=== PATIENT | female | born 1945 | race Caucasian/White ===

== ENCOUNTER 2016-12-18 09:20 | Emergency (ER) | payer BC, MEDICARE, OTHER ==
[~2016-12-18] VITALS: Ht 170.2 cm; Wt 90.5 kg
[2016-12-18 09:22] VITALS: BP 176/80; PULSE 20; PULSE 80; RESP 20; TEMP 97.7; O2SAT 97
[2016-12-18] MEDS ORDERED: CLON0.5T PO (09:53)
[2016-12-18] MEDS ORDERED: METO25TA3 PO (09:53)
[2016-12-18] MEDS ORDERED: PANT20TA2 PO (09:53)
[2016-12-18] MEDS ORDERED: INDO25CA PO (09:53)
[2016-12-18] MEDS ORDERED: ACYCLOVIR 800 MG TAB PO ONE (10:15)
[2016-12-18] MEDS ORDERED: oxyCODONE/ACETAMINOPHEN 5 MG/325 MG TAB PO ONE (10:15)
[2016-12-18] MEDS ORDERED: PERC5TAB12 PO (11:02)
[2016-12-18] MEDS ORDERED: IBUP-232 PO (11:02)
--- NOTE | 2016-12-18 11:03 | PD ---
HPI Chief Complaint: Facial Pain or Swelling Time Seen by Provider: 10:03 Travel History International Travel<30 days: No Contact w/Intl Traveler<30days: No Traveled to known affect area: No History of Present Illness HPI 71-year-old female who presents to emergency room complaints of a rash or her left side of the face. Patient reports on Tuesday, she began to have a burning rash to the left that her face, patient reports that the rash is tender to touch. Patient reports that sometimes she has sharp and stabbing and shooting pain from her rash to her ear and her face. Patient reports that she did receive the shingles vaccine. Patient with no fevers or chills. No other complaints. PFSH Past Medical History Hx Anticoagulant Therapy: No Anxiety: Yes Depression: Yes Cardiovascular Problems: Yes (Mitral valve prolapse) Chemotherapy: No Cerebrovascular Accident: No Diabetes: No Psychiatric: Yes Respiratory: No Tetanus Vaccination: > 5 Years Influenza Vaccination: No (pt report does not like ) ?: Not Menopausal: Yes : 2 Para: 2 Past Surgical History Hysterectomy: No Tonsillectomy: Yes Social History Alcohol Use: No (pt denies ) Tobacco Use: No (pt denies ) Substance Use: No (pt denies ) Allergies-Medications (Allergen,Severity, Reaction): Coded Allergies: Ramipril (Verified Allergy, Intermediate, rash, 12/18/16) Codeine (Verified Adverse Reaction, Unknown, vomiting, 12/18/16) Reported Meds & Prescriptions Reported Meds & Active Scripts Active Ibuprofen 600 Mg Tab 600 Mg PO Q6H PRN Percocet (Oxycodone-Acetaminophen) 5-325 mg Tab 1 Tab PO Q6H PRN Reported Indomethacin 25 Mg Cap 25 Mg PO TID Take with food, milk, or antacids to decrease stomach adverse effects. Pantoprazole (Pantoprazole Sodium) 20 Mg Tab 20 Mg PO DAILY Clonazepam 0.5 Mg Tab 0.5 Mg PO BID Metoprolol Tartrate 25 Mg Tab 12.5 Mg PO BID Review of Systems General / Constitutional: No: Fever Eyes: No: Visual changes HENT: No: Headaches Cardiovascular: No: Chest Pain or Discomfort Respiratory: No: Shortness of Breath Gastrointestinal: No: Abdominal Pain Genitourinary: No: Dysuria Musculoskeletal: No: Pain Skin: Positive Rash Neurologic: No: Weakness Psychiatric: No: Depression Endocrine: No: Polydipsia Hematologic/Lymphatic: No: Easy Bruising Physical Exam Narrative GENERAL: Well-nourished, well-developed patient. SKIN: Focused skin assessment warm/dry. Patient with herpetic lesions to left side of face, lesions follows a dermatomal pattern. Patient with no lesions within her left ear HEAD: Normocephalic. EYES: No scleral icterus. No injection or drainage. NECK: Supple, trachea midline. No JVD or lymphadenopathy. CARDIOVASCULAR: Regular rate and rhythm without murmurs, gallops, or rubs. RESPIRATORY: Breath sounds equal bilaterally. No accessory muscle use. GASTROINTESTINAL: Abdomen soft, non-tender, nondistended. MUSCULOSKELETAL: No cyanosis, or edema. BACK: Nontender without obvious deformity. No CVA tenderness. Data Data Last Documented VS Vital Signs Date Time Temp Pulse Resp B/P Pulse Ox O2 Delivery O2 Flow Rate FiO2 12/18/16 09:22 97.7 80 20 176/80 97 Room Air Orders Oxycodone-Acetamin 5-325 Mg (Percocet (12/18/16 10:15) Acyclovir (Zovirax) (12/18/16 10:15) [facility] Medical Decision Making Medical Screen Exam Complete: Yes Emergency Medical Condition: Yes Interpretation(s) Vital Signs Date Time Temp Pulse Resp B/P Pulse Ox O2 Delivery O2 Flow Rate FiO2 12/18/16 09:22 97.7 80 20 176/80 97 Room Air Differential Diagnosis Differential includes rash, shingles Narrative Course 71-year-old female who presents to emergency room with complaints of lesions to the left side of her face, patient reports a burning sensation to left side of her face with pain that radiates to her head and shoulder, patient reports that the rash began on Tuesday. On clinical evaluation, patient appears to have herpetic lesions to the left side of face, herpetic lesions do follow a dermatomal pattern. Plan to treat with acyclovir as well as pain medications. Patient was given a dose of Percocet well emergency room, patient is feeling better, plan to discharge with follow-up with primary care doctor Diagnosis Primary Impression: Shingles (herpes zoster) polyneuropathy Additional Impression: Shingles rash Patient Instructions: General Instructions, Narcotic given in the ED Departure Forms: Tests/Procedures, Work Release Enter return to work date: Dec 27, 2016 Additional Instructions: Please follow up with your primary care doctor Return to the emergency room as needed Please do not drive or operate heavy machinery while taking narcotic pain medications Med/Other Pt SpecificInfo: Prescription(s) given Scripts Acyclovir 800 Mg [id number] Mg PO 5 TIMES A DAY 10 Days Ref 0 Prov:Clementina Gallegos DO 12/18/16 Ibuprofen 600 Mg [id number] Mg PO Q6H PRN (Pain/Inflammation) #40 TAB Ref 0 Prov:Clementina Gallegos DO 12/18/16 Oxycodone-Acetaminophen (Percocet)5-325 mg Tab1 Tab PO Q6H PRN (PAIN) #15 TAB Ref 0 Prov:Clementina Gallegos DO 12/18/16 Disposition: 01 DISCHARGE HOME Condition: Stable Clementina Gallegos DO Dec 18, 2016 11:03
[2016-12-18] MEDS ORDERED: ACYC800T PO (11:04)
[2016-12-18 11:26] VITALS: BP 148/81; TEMP 98
[2016-12-18 11:28] VITALS: RESP 17
== END 2016-12-18 11:26 | disposition home or self-care (01) ==
LOC: NEPE 09:20
DX: B02.23 Postherpetic polyneuropathy (principal); B02.8 Zoster with other complications; Z86.59 Personal history of other mental and behavioral disorders; Z86.79 Personal history of other diseases of the circulatory system
CPT/HCPCS: 99284

== ENCOUNTER 2017-07-29 10:03 | Emergency (ER) | payer MEDICARE ==
[~2017-07-29] VITALS: Ht 170.2 cm; Wt 90.5 kg
[~2017-07-29 10:03] MED LIST: ACYC800T PO; CLON0.5T PO; IBUP-232 PO; INDO25CA PO; METO25TA3 PO; PANT20TA2 PO; PERC5TAB12 PO
[2017-07-29 10:04] VITALS: BP 136/94; PULSE 97; RESP 20; TEMP 99; O2SAT 97
[2017-07-29] MEDS ORDERED: CELE10TA PO (10:35)
[2017-07-29] MEDS ORDERED: RESP: ALBUTEROL 2.5 MG/IPRATROPIUM 0.5 MG NEB (SCH) INH ONE (11:45)
[2017-07-29] MEDS ORDERED: predniSONE 20 MG TAB PO ONE (11:45)
--- NOTE | 2017-07-29 12:49 | PD ---
HPI Chief Complaint: Cold / Flu Symptoms Time Seen by Provider: 11:16 Travel History International Travel<30 days: No Contact w/Intl Traveler<30days: No Traveled to known affect area: No History of Present Illness HPI 71-year-old female presents to the emergency department with complaint of cough , fever, congestion, vomiting, diarrhea that started on Tuesday. On Tuesday she saw her primary care provider, Dr. Gutierrez, who gave her Cipro and she took it for 2 days and stopped taking it because it made her sick. She was also given Tessalon Perles which have not been helping her cough. She states she came to the emergency department because her primary care provider is out of town. Reports shortness of breath and wheezing. Reports chest pain with coughing only. Denies sore throat or ear pain. Denies continued fever. Reports continued diarrhea. Reports nausea without continued vomiting. She has been taking Robitussin and Delsym for symptom management. No known relieving or aggravating factors. Daughter was sick with similar symptoms. Primary care provider is Dr. Gutierrez. Allergies to verapamil and codeine. History of mitral valve prolapse, hypertension. Has no other medical complaints. No other modifying factors or associated signs and symptoms. PFSH Past Medical History Hx Anticoagulant Therapy: No Anxiety: Yes Depression: Yes Cardiovascular Problems: Yes Chemotherapy: No Cerebrovascular Accident: No Diabetes: No Diminished Hearing: No Psychiatric: Yes Respiratory: No Immunizations Current: Yes ?: Not Menopausal: Yes : 2 Para: 2 Past Surgical History Hysterectomy: No Tonsillectomy: Yes Social History Alcohol Use: No (pt denies ) Tobacco Use: No (pt denies ) Substance Use: No (pt denies ) Allergies-Medications (Allergen,Severity, Reaction): Coded Allergies: ramipril (Verified Allergy, Intermediate, rash, 07/29/17) codeine (Verified Adverse Reaction, Unknown, vomiting, 07/29/17) Reported Meds & Prescriptions Reported Meds & Active Scripts Active Azithromycin 500 Mg Tab 500 Mg PO DAILY Deltasone (Prednisone) 20 Mg Tab 40 Mg PO DAILY 4 Days start 07/30/2017 Ventolin Hfa 18 GM Inh (Albuterol Sulfate) 90 Mcg/Act Aer 2 Puff INH Q4-6H PRN Reported Celexa (Citalopram Hydrobromide) 10 Mg Tab 10 Mg PO BID Clonazepam 0.5 Mg Tab 0.5 Mg PO BID Metoprolol Tartrate 25 Mg Tab 12.5 Mg PO BID Review of Systems Except as stated in HPI: all other systems reviewed are Neg Physical Exam Narrative GENERAL: Well-nourished, well-developed elderly, female patient, in no acute distress; afebrile, nontoxic-appearing SKIN: Warm and dry. HEAD: Atraumatic. Normocephalic. EYES: Pupils equal and round. No scleral icterus. No injection or drainage. ENT: Mucosa pink and moist. No erythema or exudates. No uvular edema. No uvular , palatal, or tonsillar deviation. Airway patent. Nares without nasal blood, purulent drainage or septal hematoma. EARS: Bilateral pinnae and external canals appear within normal limits. Bilateral tympanic membranes without erythema, dullness or perforation. NECK: Trachea midline. No lymphadenopathy. CARDIOVASCULAR: Regular rate and rhythm. No murmur appreciated. RESPIRATORY: No accessory muscle use. Lungs with Wheezing throughout to auscultation. Breath sounds equal bilaterally. No retractions or tachypnea. No Audible wheezing noted. GASTROINTESTINAL: Abdomen soft, non-tender, nondistended. Hepatic and splenic margins not palpable. Bowel sounds are active 4 quadrants. MUSCULOSKELETAL: No obvious deformities. No clubbing. No cyanosis. No edema. NEUROLOGICAL: Awake and alert. Oriented 3. No obvious cranial nerve deficits. Motor grossly within normal limits. Normal speech. Moves all extremities. 5/5 strength to all extremities. PSYCHIATRIC: Appropriate mood and affect; insight and judgment normal. Data Data Last Documented VS Vital Signs Date Time Temp Pulse Resp B/P (MAP) Pulse Ox O2 Delivery O2 Flow Rate FiO2 07/29/17 13:30 97.8 78 16 120/77 (91) 99 07/29/17 10:36 Room Air Orders Orders Electrocardiogram (07/29/17 ) Chest, Single Ap (07/29/17 11:45) Prednisone (Deltasone) (07/29/17 11:45) Albuterol-Ipratropium Neb (Duoneb Neb) (07/29/17 11:45) Influenzae A/B Antigen (07/29/17 11:46) Ed Discharge Order (07/29/17 13:19) MDM Medical Decision Making Medical Screen Exam Complete: Yes Emergency Medical Condition: Yes Medical Record Reviewed: Yes Differential Diagnosis Bronchitis, pneumonia, influenza, viral illness, upper respiratory infection Narrative Course 71-year-old female with cold/flu symptoms. Patient is afebrile and nontoxic pain. She denies fever, vomiting. Lungs are with wheezing throughout. She is in no acute distress. No retractions or tachypnea. Reports feeling short of breath and wheezing. DuoNeb, prednisone, chest x-ray, influenza ordered. 1300: On reexamination the patient reports improvement in symptoms. Lungs are clear and equal throughout. 97% on room air. No retractions or tachypnea. 1310: Chest x-ray concluded: Chest X-Ray 07/29/17 1145 Signed Impressions: Service Date/Time: Saturday, July 29, 2017 12:03 - CONCLUSION: No acute disease. Chris Little MD Discussed x-ray findings with the patient. Influenza negative. Albuterol inhaler, Deltasone, and azithromycin prescribed for home. Instructed patient to follow up with primary care provider. Patient verbalizes understanding and agreement with treatment plan. Patient is medically cleared and stable for discharge. Discussed reasons to return to the emergency department. Patient agrees with treatment plan. The patients vital signs are stable and the patient is stable for outpatient follow-up and treatment. Patient discharged home, stable and in no acute distress. Diagnosis Primary Impression: Acute bronchitis Qualified Codes: J20.9 - Acute bronchitis, unspecified Additional Impression: Upper respiratory infection Qualified Codes: J06.9 - Acute upper respiratory infection, unspecified Referrals: Primary Care Physician Patient Instructions: Acute Bronchitis (ED), General Instructions, Upper Respiratory Infection (ED) Departure Forms: Tests/Procedures, Work Release Enter return to work date: Aug 02, 2017 Additional Instructions: Use Albuterol inhaler as prescribed Take oral steroids as prescribed and complete full course Use Tessalon Perles as prescribed to decrease coughing spasms [id number] decongestants or antihistamines as directed and as needed for symptom management Your cough can last 4-6 weeks Drink plenty of fluids to prevent dehydration Use hot air humidifier to decrease cough exacerbation Turn off ceiling fans and sleep with head of bed elevated Avoid triggers such as second hand smoke, dust, known allergens Follow-up with your primary care provider Return to the emergency department immediately with worsening of symptoms Med/Other Pt SpecificInfo: Prescription(s) given Scripts Azithromycin (Azithromycin) 500 Mg Tab 500 MG PO DAILY for Infection, #5 TAB 0 Refills Prov: Aleshia Patrick 07/29/17 Prednisone (Deltasone) 20 Mg Tab 40 MG PO DAILY for 4 Days, #8 TAB 0 Refills start 07/30/2017 Prov: Aleshia Patrick 07/29/17 Albuterol 18 GM Inh (Ventolin Hfa 18 GM Inh) 90 Mcg/Act Aer 2 PUFF INH Q4-6H Y for SOB/WHEEZING, #1 INHALER 0 Refills Prov: Aleshia Patrick 07/29/17 Disposition: 01 DISCHARGE HOME Condition: Stable Aleshia Patrick Jul 29, 2017 12:49
--- NOTE | 2017-07-29 12:53 | RADRPT ---
EXAM DATE/TIME: 07/29/2017 12:03 [facility] COMPARISON: No previous studies available for comparison. INDICATIONS : Wheezing, cold x 1 week, discomfort in chest MEDICAL HISTORY : None. SURGICAL HISTORY : None. ENCOUNTER: Initial ACUITY: 3 days PAIN SCORE: 3/10 LOCATION: Bilateral chest FINDINGS: A single view of the chest demonstrates the lungs to be symmetrically aerated without evidence of mas s, infiltrate or effusion. The cardiomediastinal contours are unremarkable. Osseous structures are intact. CONCLUSION: No acute disease. Chris Little MD on July 29, 2017 at 12:50 Board Certified Radiologist. This report was verified electronically.
[2017-07-29] MEDS ORDERED: AZIT500T2 PO (13:18)
[2017-07-29] MEDS ORDERED: PRED-503 PO (13:18)
[2017-07-29] MEDS ORDERED: VENTAER INH (13:18)
[2017-07-29 13:30] VITALS: BP 120/77; TEMP 97.8
--- NOTE | 2017-07-29 16:35 | EKG ---
Date Performed: 07/29/2017 Time Performed: 10:50:41 PTAGE: 71 years EKG: Sinus rhythm NONSPECIFIC T-WAVE ABNORMALITY BORDERLINE ECG PREVIOUS TRACING : 04/23/1998 19.24 Compared to previous tracing, nonspecific T wave abnormalit y is now present. DOCTOR: Junaid Montoya Interpretating Date/Time 07/29/2017 16:33:02
== END 2017-07-29 13:30 | disposition home or self-care (01) ==
LOC: NEPD 10:03
DX: J20.9 Acute bronchitis, unspecified (principal); J06.9 Acute upper respiratory infection, unspecified; R19.7 Diarrhea, unspecified; R11.2 Nausea with vomiting, unspecified; F41.9 Anxiety disorder, unspecified; F32.9 Major depressive disorder, single episode, unspecified; R94.31 Abnormal electrocardiogram [ECG] [EKG]; Z79.899 Other long term (current) drug therapy; Z79.51 Long term (current) use of inhaled steroids
CPT/HCPCS: 71045; 87804; 93005; 94664; 99285; J7512